=== PATIENT | male | born 1975 | race African-American/Black ===

== ENCOUNTER 2017-06-02 12:57 | Emergency (ER) | payer OTHER ==
[2017-06-02 13:05] VITALS: RESP 18
--- NOTE | 2017-06-02 13:21 | ED ---
Back Pain HPI - General Chief Complaint: Back Pain/Injury Stated Complaint: Back Pain Time Seen by Provider: 06/02/17 13:06 Source: patient, RN notes reviewed, old records reviewed Limitations: no limitations - History of Present Illness Initial Comments: Patient is a 42-year-old male presents emergency Department chief complaint of increasing lower back pain. He reports he's been having lower back pain intermittently for the past 2 years. He states that over the past week it seems to be increasingly worse in the standing for long periods of time. He denies any falls. He denies any abdominal pain. Denies any saddle anesthesias or urinary symptoms. He reports the pain is in the lumbar spine and can his left buttocks. He states that in the past he said pain shoot down the entire leg. He reports that he previously saw a chiropractor but has not been to one in many years.Patient denies any recent fever, chills, shortness of breath, chest pain, abdominal pain, nausea vomiting, numbness or tingling, dysuria or hematuria, constipation or diarrhea, headaches or visual changes, or any other current symptoms - Related Data Home Medications Medication Instructions Recorded Confirmed Ibuprofen [Motrin Ib] 200 - 800 mg PO HS PRN 06/02/17 06/02/17 Previous Rx's Medication Instructions Recorded Acetaminophen-Codeine 300-30mg 1 tab PO Q6H PRN #12 tablet 06/02/17 [Tylenol #3] Cyclobenzaprine [Flexeril] 10 mg PO TID #20 tab 06/02/17 Dexamethasone 0.75 mg PO DAILY #12 tab 06/02/17 Allergies Allergy/AdvReac Type Severity Reaction Status Date / Time No Known Allergies Allergy Verified 06/02/17 13:18 Review of Systems ROS Statement: Those systems with pertinent positive or pertinent negative responses have been documented in the HPI. ROS Other: All systems not noted in ROS Statement are negative. Past Medical History Additional Past Medical History / Comment(s): chronic back pain History of Any Multi-Drug Resistant Organisms: None Reported Past Surgical History: Hernia Repair Past Psychological History: No Psychological Hx Reported Smoking Status: Never smoker Past Alcohol Use History: None Reported Past Drug Use History: None Reported General Exam - General Exam Comments Initial Comments: 42-year-old male. No distress. Limitations: no limitations General appearance: alert, in no apparent distress Head exam: Present: atraumatic, normocephalic, normal inspection Eye exam: Present: normal appearance, PERRL, EOMI. Absent: scleral icterus, conjunctival injection, periorbital swelling ENT exam: Present: normal exam, mucous membranes moist Neck exam: Present: normal inspection. Absent: tenderness, meningismus, lymphadenopathy Respiratory exam: Present: normal lung sounds bilaterally. Absent: respiratory distress, wheezes, rales, rhonchi, stridor Cardiovascular Exam: Present: regular rate, normal rhythm, normal heart sounds. Absent: systolic murmur, diastolic murmur, rubs, gallop, clicks GI/Abdominal exam: Present: soft, normal bowel sounds. Absent: distended, tenderness, guarding, rebound, rigid Extremities exam: Present: normal inspection, full ROM, normal capillary refill. Absent: tenderness, pedal edema, joint swelling, calf tenderness Back exam: Present: normal inspection, tenderness (Lumbar sciatic notch tenderness. Left side.) Expanded Back exam: Sciatic Notch Tenderness: Left Neurological exam: Present: alert, oriented X3, CN II-XII intact Psychiatric exam: Present: normal affect, normal mood Skin exam: Present: warm, dry, intact, normal color. Absent: rash Course Vital Signs 06/02/17 13:03 Temperature 98.0 F Pulse Rate 91 Respiratory 18 Rate Blood Pressure 126/59 O2 Sat by Pulse 97 Oximetry Medical Decision Making - Medical Decision Making 42-year-old male presents today chief complaint of lower back pain mainly down the left lumbar and sciatic region. He reports occasional shoot down his buttock. At this time he has full range of motion. No neurological deficits. No saddle anesthesias. He is somewhat tender over the sciatic notch of the left side. At this time patient's x-ray shows evidence of L5-S1 degenerative disc disease. I discussed that I'll put the patient on antiplatelet medicine as well as muscle relaxers. Discussed following up with orthopedic. All questions were answered and return parameters were discussed. - Radiology Data Radiology results: report reviewed Degenerative changes primarily L5-S1 with facet arthropathy and mild to moderate disc/endplate degenerative change. No vertebral compression collapse or malalignment. Disposition Clinical Impression: Facet arthritis, degenerative, L5-S1 level, lumbosacral spine Disposition: HOME SELF-CARE Condition: Good Instructions: Lumbar Radiculopathy (ED) Additional Instructions: Patient advised to take the anti-inflammatory medicine as motion and continue take muscle relaxer and pain medicine as prescribed. Also recommended take the steroid taper pack as directed. Follow-up with orthopedic women specialist. Return to the emergency department if any alarming signs or symptoms occur. Prescriptions: Acetaminophen-Codeine 300-30mg [Tylenol #3] 1 tab PO Q6H PRN #12 tablet PRN Reason: Pain Cyclobenzaprine [Flexeril] 10 mg PO TID #20 tab Dexamethasone 0.75 mg PO DAILY #12 tab Referrals: Nonstaff,Physician [REFERRING] - 1-2 days Kian Morrison DO [Doctor of Osteopathic Medicine] - 1-2 days Time of Disposition: 14:05
--- NOTE | 2017-06-02 13:52 | XR ---
EXAMINATION TYPE: XR lumbar spine 2 or 3V DATE OF EXAM: 06/02/2017 COMPARISON: NONE HISTORY: 42-year-old male with low back pain TECHNIQUE: 3 views FINDINGS: 5 lumbar type vertebral bodies. There is facet degenerative change lower lumbar spine. Mild to modera te disc space narrowing and endplate spondylosis at L5-S1. Vertebral body heights are maintained and alignment is preserved. IMPRESSION: Degenerative changes primarily at L5-S1 with facet arthropathy and mild to moderate disc/endplate deg enerative change. No vertebral compression collapse or malalignment.
[2017-06-02] MEDS ORDERED: CYCLOBENZAPRINE 10MG STARTER 3 TAB BTL PO STA (14:07)
[2017-06-02 14:22] VITALS: BP 157/70; PULSE 81; TEMP 97.8
== END 2017-06-02 14:22 | disposition home or self-care (01) ==
LOC: EC 12:57
DX: M46.97 Unspecified inflammatory spondylopathy, lumbosacral region (principal); M51.37 Other intervertebral disc degeneration, lumbosacral region
CPT/HCPCS: 72100; 99284